=== PATIENT | male | born 1990 | race Two or more races ===

== ENCOUNTER 2022-09-20 16:11 | Inpatient (IN) | payer OTHER ==
[~2022-09-20] VITALS: Ht 177.8 cm; Wt 93.0 kg
--- NOTE | 2022-09-20 17:55 | NUR ---
TO ER 15,NO APPARENT CHANGE IN CONDITION
[2022-09-20 19:03] LABS: BASOPHILS # (AUTO) 0.1 K/uL (0.0-0.2); BASOPHILS % (AUTO) 0.8 % (0.0-2.0); EOSINOPHILS % (AUTO) 2.6 % (0.0-6.0); HEMATOCRIT 41 % (39-51); HEMOGLOBIN 14.1 g/dL (13.5-17.5); LYMPHOCYTES # (AUTO) 3.1 K/uL (0.8-4.8); LYMPHOCYTES % (AUTO) 35.5 % (20.0-44.0); MEAN CORPUSCULAR HGB CONC 35 g/dl (31.0-36.0); MEAN CORPUSCULAR VOLUME 90 fL (80-96); MONOCYTES # (AUTO) 0.8 K/uL (0.1-1.30); MONOCYTES % (AUTO) 8.9 % (2.0-12.0); NEUTROPHILS # (AUTO) 4.6 K/uL (1.8-8.9); NEUTROPHILS % (AUTO) 52.2 % (43.0-81.0); PLATELET COUNT (AUTO) 400 K/uL (150-450); RED BLOOD CELL COUNT(AUTO) 4.56 MIL/uL (4.5-6.0); WHITE BLOOD COUNT (AUTO) 8.7 K/uL (4.3-11.0)
[2022-09-20 19:12] LABS: CALCIUM, SERUM 8.7 mg/dL (8.5-10.1); CARBON DIOXIDE 29 mmol/L (21-32); CHLORIDE 105 mmol/L (98-107); CREATININE 1.1 mg/dL (0.6-1.3); GLUCOSE 102 mg/dL (74-106); POTASSIUM 4.1 mmol/L (3.5-5.1); SODIUM SERUM 141 mmol/L (136-145); UREA NITROGEN, BLOOD 18 mg/dL (7-18)
[2022-09-20 19:17] LABS: ALANINE AMINOTRANSFERASE 32 U/L (12-78); ALBUMIN 4.1 g/dL (3.4-5.0); ALKALINE PHOSPHATASE 75 U/L (46-116); ASPARTATE AMINOTRANSFERASE 23 U/L (15-37); BILIRUBIN,DIRECT 0.1 mg/dL (0.0-0.2); BILIRUBIN,TOTAL 0.5 mg/dL (0.2-1.0); LIPASE 66 U/L (73-393); TOTAL PROTEIN, SERUM 7.4 g/dL (6.4-8.2)
[2022-09-20] MEDS ORDERED: METOPROLOL TARTRATE INJ 5 MG/5 ML AMPUL IV ONE (19:30)
[2022-09-20] MEDS ORDERED: METOPROLOL TARTRATE INJ 5 MG/5 ML AMPUL ONE (19:52)
--- NOTE | 2022-09-20 20:03 | NUR ---
20G IV STARTED AT [facility]
[2022-09-20] MEDS ORDERED: METOPROLOL SUCCINATE 50 MG TAB.SR.24H PO SCH (20:30)
[2022-09-20] MEDS ORDERED: METOPROLOL TARTRATE 50 MG TABLET ONE (20:31)
--- NOTE | 2022-09-20 20:51 | NUR ---
COVID SWAB SENT TO LAB
[2022-09-20] MEDS ORDERED: ENOXAPARIN SODIUM 100 MG/ML DISP.SYRIN SQ SCH (23:00)
[2022-09-20] MEDS ORDERED: AMIODARONE 150 MG in IV D5W 100 ML IV ONE (23:00)
[2022-09-20] MEDS ORDERED: AMIODARONE 150 MG/3 ML VIAL IV ONE ×2 (23:06→23:09)
[2022-09-20] MEDS ORDERED: Z GUARD REMEDY 4 OZ OINT TP PRN (23:30)
[2022-09-20] MEDS ORDERED: MAGNESIUM HYDROXIDE 30 ML UDC PO PRN (23:30)
[2022-09-20] MEDS ORDERED: ONDANSETRON HCL/PF 4 MG/2 ML VIAL IVP PRN (23:30)
[2022-09-20] MEDS ORDERED: ACETAMINOPHEN 325 MG TABLET PO PRN (23:30)
[2022-09-20] MEDS: AMIODARONE 450 MG in IV D5W 241 ML IV PRN (23:30)
[2022-09-20] MEDS ORDERED: MAG HYDROX/AL HYDROX/SIMETH 30 ML UDC PO PRN (23:30)
--- NOTE | 2022-09-20 23:30 | NUR ---
AMIODARONE DRIP INITIATED AT 1MG/MIN PER PROTOCOL
[2022-09-20] MEDS ORDERED: ENOXAPARIN SODIUM 100 MG/ML DISP.SYRIN SQ ONE (23:33)
--- NOTE | 2022-09-21 01:09 | NUR ---
PT SLEEPING COMOFRTABLY BREATHING UNLABORED. REMAINS ON MONITOR AND V/S WNL. CALL LIGHT WITHIN REACH.
--- NOTE | 2022-09-21 04:40 | NUR ---
PHLEB AT BEDSIDE
[2022-09-21] MEDS ORDERED: AMIODARONE 150 MG/3 ML VIAL IV ONE (05:12)
[2022-09-21 05:28] LABS: BASOPHILS # (AUTO) 0.1 K/uL (0.0-0.2); EOSINOPHILS % (AUTO) 4.7 % (0.0-6.0); HEMATOCRIT 43 % (39-51); HEMOGLOBIN 14.4 g/dL (13.5-17.5); LYMPHOCYTES # (AUTO) 2.3 K/uL (0.8-4.8); LYMPHOCYTES % (AUTO) 32.5 % (20.0-44.0); MEAN CORPUSCULAR HGB CONC 34 g/dl (31.0-36.0); MEAN CORPUSCULAR VOLUME 91 fL (80-96); MONOCYTES # (AUTO) 0.8 K/uL (0.1-1.30); MONOCYTES % (AUTO) 10.9 % (2.0-12.0); NEUTROPHILS # (AUTO) 3.5 K/uL (1.8-8.9); NEUTROPHILS % (AUTO) 50.9 % (43.0-81.0); PLATELET COUNT (AUTO) 377 K/uL (150-450); WHITE BLOOD COUNT (AUTO) 6.9 K/uL (4.3-11.0)
--- NOTE | 2022-09-21 05:30 | NUR ---
AMIODARONE DRIP TITRATED TO 0.5MG/MIN PER PROTOCOL
[2022-09-21] MEDS: AMIODARONE 450 MG in IV D5W 241 ML IV PRN ×2 (05:31→19:24)
--- NOTE | 2022-09-21 05:31 | NUR ---
AMIO DRIP TITRATED TO 0.5MG PER PROTOCOL.
[2022-09-21 05:53] LABS: CALCIUM, SERUM 8.8 mg/dL (8.5-10.1); MAGNESIUM 2.3 mg/dL (1.8-2.4); PHOSPHORUS 3.7 mg/dL (2.5-4.9); POTASSIUM 4.2 mmol/L (3.5-5.1)
[2022-09-21 06:05] LABS: THYROID STIMULATING HORMONE 1.525 uIU/mL (0.358-3.74)
[2022-09-21] MEDS ORDERED: ENOXAPARIN SODIUM 100 MG/ML DISP.SYRIN SQ SCH ×2 (06:35→09:00)
--- NOTE | 2022-09-21 07:12 | NUR ---
SOL 104
--- NOTE | 2022-09-21 07:54 | NUR ---
ROOM 103 PER [facility] [employer]
--- NOTE | 2022-09-21 07:58 | NUR ---
PT REPORT GIVEN TO SARAY DAY [facility]
[2022-09-21] MEDS: PANTOPRAZOLE 40 MG TABLET.DR PO SCH (08:45)
--- NOTE | 2022-09-21 08:56 | NUR ---
PT TRANSFERRED TO 103 VIA [facility] ACLS PROTOCOL. WARM HANDOFF GIVEN TO SARAY DAY
--- NOTE | 2022-09-21 10:14 | NUR ---
ADMISSION NOTES PT CAME TO UNIT IN STABLE CONDITION, FROM HOME THEN ER. A/O X 4 [place] SPEAKING. PT ON RA SATING AT 99%. DX IS NEW ONSET AFIB. NO MEDICAL HISTORY, NO KNOWN ALLERGIES, TELE READS HR IN 80'S. SKIN IS INTACT. PT ON REGULAR DIET. IV ACCESS NOTED ON R AC 20G. AMIO DRIP RUNNING AT 0.5MG/MIN. LATEST TROPONIN 47, TRENDING DOWN. ALL SAFETY PRECAUTIONS IN PLACE, WILL CONTINUE TO MONITOR THROUGHOUT SHIFT.
--- NOTE | 2022-09-21 10:42 | NUR ---
current hr 105, a fib
[2022-09-21 12:00] VITALS: BP 106/68
[2022-09-21 16:00] VITALS: BP 138/59
[2022-09-21] MEDS ORDERED: RIVAROXABAN 10 MG TABLET PO SCH (18:30)
--- NOTE | 2022-09-21 19:48 | NUR ---
RECEIVED PATIENT IN BED, AWAKE A/O X4 ABLE TO VERBALIZE NEEDS AND CONCERNS, AT ROOM AIR NO SOB/ACUTE DISTRESS NOTED, PATIENT ON AMIODARONE DRIP INFUSING AT 0.5MG AT THIS TIME, WITH HR STILL AFIB UNCONTROL WITH HR 1110S AT THIS TIME, PATIENT WILL BE NPO AFTER MIDNIGHT FOR ESOSOPHAGEAL ECHOCARDIOGRAM WITH CARDIOVERSION IN AM, PATIENT VERBALIZE UNDERSTANDING, AND AWARE OF PLAN OF CARE, WILL CONTINUE TO MONITOR CLOSELY.
[2022-09-21 20:00] VITALS: BP 117/80
[2022-09-22] VITALS: BP 95/68
[2022-09-22 04:00] VITALS: BP 94/70
--- NOTE | 2022-09-22 06:39 | NUR ---
END OF SHIFT, PATIENT IN BED, AWAKE A/O X4 ABLE TO VERBALIZE NEEDS AND CONCERNS, AT ROOM AIR NO SOB/ACUTE DISTRESS NOTED, PATIENT continue ON AMIODARONE DRIP INFUSING AT 0.25MG PER LAKESHIA SCHULTE ROOM DESIGNER TO CONTINUE AMIODARONE AT THIS RATE UNTIL FURTHER ORDERS, HR STILL AFIB UNCONTROLLED WITH HR 80- THROUGHOUT THE NIGHT , PATIENT NPO SINCE MIDNIGHT FOR ESOSOPHAGEAL ECHOCARDIOGRAM WITH CARDIOVERSION TODAY, WILL ENDORSE CONTINUITY OF CARE TO ONCOMING NURSE.
--- NOTE | 2022-09-22 07:30 | NUR ---
TD RN AM NOTES RECEIVED PATIENT IN BED, AWAKE A/O X4 ABLE TO VERBALIZE NEEDS AND CONCERNS, ROOM AIR O2 SAT 97%, NO SOB/ACUTE DISTRESS NOTED, RESPIRATION UNLABORED. AFIB CONTROLLED ON MONITOR, DENIES CHEST PAIN/DISCOMFORT. PATIENT ON AMIODARONE DRIP INFUSING AT 0.25MG AT THIS TIME, PATIENT NPO FOR IZABELLA POSSIBLE CARDIOVERSION TODAY. CONSENT SIGNED. AWARE OF PLAN OF CARE, BED LOW LOCKED, CALL LIGHT WITHIN REACH. WILL CONTINUE TO MONITOR CLOSELY.
[2022-09-22] MEDS: PANTOPRAZOLE 40 MG TABLET.DR PO SCH (07:49)
[2022-09-22 08:00] VITALS: BP 136/75
[2022-09-22] MEDS ORDERED: ANESTHESIA TRAY IN PYXIS 1 EA TRAY MC ONE (08:57)
--- NOTE | 2022-09-22 09:14 | NUR ---
RN NOTES PATIENT TRANSFERRED TO ICU RM 251 FOR SCHEDULED PROCEDURE. BEDSIDE REPORT GIVEN TO SUMEET
--- NOTE | 2022-09-22 09:30 | NUR ---
RN NOTES DUE MEDS GIVEN EARLIER
[2022-09-22] MEDS ORDERED: MIDAZOLAM HCL 2 MG/2ML VIAL ONE (09:36)
--- NOTE | 2022-09-22 10:43 | NUR ---
RN NOTES BACK FROM ICU. POST CARDIOVERSION. IZABELLA CANCELLED BY DR. LINN.
--- NOTE | 2022-09-22 10:58 | NUR ---
IZABELLA procedure cancelled by Dr Hodgson. Pt converted to SR. Transferred back to [facility]. Pt remains AAOx4. VSS No distres noted
[2022-09-22 12:00] VITALS: BP 112/79
--- NOTE | 2022-09-22 14:30 | NUR ---
RN NOTES PATIENT DISCHARGED TO HOME TODAY PER MD IN STABLE CONDITION. PROVIDED DC INSTRUCTIONS, HEALTH TEACHINGS. NO MEDICATIONS AT THIS TIME. RT AC IV ACCESS REMOVED, CATH TIP COMPLETE. PRESSURE APPLIED, NO BLEEDING, DRESSING IN PLACE. ALL BELONGINGS CHECKED AND RETURNED. ALL PAPER WORKS SIGNED. PATIENT TO FOLLOW UP WITH CARDIO AND PMD IN 1 WEEK AN WILL MAKE OWN APPOINTMENT. ALL NEEDS ,MET. WILL BE TRANSPORTED TO HOME VIA PRIVATE CAR.
== END 2022-09-22 14:54 | disposition home or self-care (01) | DRG 282 ==
LOC: ER 16:15 → TRANSITION 22:51 → TELE-TD 09-21 07:25 → ICU 09-22 10:05 → TELE1 09-22 10:57
PROVIDERS: ADMIT Nurse Practitioner Family; ATTEND Registered Nurse
DX: I48.0 Paroxysmal atrial fibrillation (principal); I21.A1 Myocardial infarction type 2; Z20.822 Contact with and (suspected) exposure to COVID-19; F12.90 Cannabis use, unspecified, uncomplicated; I51.7 Cardiomegaly; Z68.29 Body mass index [BMI] 29.0-29.9, adult; E66.3 Overweight
CPT/HCPCS: 36415; 71045-TC; 76705-TC; 80048-TC; 80061-TC; 80076-TC; 83690-TC; 83735-TC; 84100-TC; 84443-TC; 84484-TC; 85025-TC; 85730-TC; 87081-TC; 93307-TC; C9803; G0378; J0282; J1650; J2250; J2405; J3490; J7030; J7060